=== PATIENT | female | born 1975 | race Caucasian/White ===

== ENCOUNTER → 2020-05-01 | Outpatient (CLI) | payer OTHER ==
--- NOTE | 2020-05-01 16:24 | CONS ---
CONSULTATION DATE OF SERVICE: 05/01/2020 This patient is a 45-year-old lady who has [facility] for obstructive sleep apnea-hypopnea syndrome. HISTORY OF PRESENT ILLNESS/SLEEP-WAKE EVALUATION: Patient was diagnosed with obstructive sleep apnea about 2 years ago. Since that time she has been on treatment with CPAP and, according to her, she is using equipment every night. Her sleep schedule is from midnight until 8 a.m. on working days and from 1 or 2 a.m. until 9 or 10 a.m. on weekends. Usually no problems with falling asleep. No TV in bedroom. Patient usually sleeps on the side position. Usually she is able to sleep through the night without awakenings. In the morning she wakes up tired, has difficulties paying attention, falling asleep during the day. She has problems with concentration, irritability, depression and anxiety. [place] Sleepiness Scale is increased significantly at 17. PAST MEDICAL HISTORY: Past medical history is positive for allergies, depression, acid reflux. PAST SURGICAL HISTORY: Cholecystectomy, partial hysterectomy, carpal tunnel syndrome surgery, bladder suspension. MEDICATIONS: Zyrtec, Prilosec, Pristiq. SOCIAL HISTORY: Positive for smoking a half to one pack a day for 20 years. Alcohol consumption none. FAMILY HISTORY: Hypertension, heart problems, stroke, fibromyalgia, arthritis, cancer, sleep apnea, mental illness, anemia, restless legs. REVIEW OF SYSTEMS: Sleepiness during the day. PHYSICAL EXAMINATION: GENERAL: A pleasant lady without distress. VITAL SIGNS: BP 139/88, HR 88, RR 16, height 5 feet 5 inches, weight 274, body mass index 45.5, oxygen saturation at room air 98%. HEENT: PERRLA, EOMI. Evaluation of oropharynx showed tongue protrudes midline. Low position of soft palate. NECK: Supple. No JVD. Thyroid is not palpable. Wide neck; 17-1/4 inches in circumference. LUNGS: Clear to percussion and to auscultation. Good air exchange. No wheezing or rhonchi. HEART: S1, S2 regular. No murmurs, gallops or rubs. ABDOMEN: Obese. EXTREMITIES: No clubbing or cyanosis. ADMISSIONS MANAGER: Awake, alert, and oriented X3. Cranial nerves 2 to 7 intact. There is no fasciculation or atrophy. noted. No focal deficits observed. IMPRESSION: 1. Obstructive sleep apnea for 2 years. The patient continues to use CPAP equipment but feels sleepy during the day. 2. Depression. 3. Allergies. 4. Acid reflux. 5. Status post cholecystectomy. 6. Status post bladder suspension. 7. Status post partial hysterectomy. 8. Status post surgery for carpal tunnel syndrome. PLAN: 1. Patient will continue to use CPAP equipment every night for the whole night. 2. Will repeat CPAP titration for reevaluation of effective CPAP pressure at the present time. 3. Precautions related to driving. No driving if feeling any sleepiness. 4. Losing weight. Thank you very much for allowing me to participate in the management of your patient. Sincerely, Carroll Nash MD, PhD, FAASM Diplomat of [employer] [facility] [id number] / LAY: [id number] /
== END | disposition home or self-care (01) ==
LOC: SLEEP 13:35
PROVIDERS: ATTEND Internal Medicine
DX: G47.33 Obstructive sleep apnea (adult) (pediatric) (principal); F32.9 Major depressive disorder, single episode, unspecified; K21.9 Gastro-esophageal reflux disease without esophagitis; Z90.49 Acquired absence of other specified parts of digestive tract; Z90.711 Acquired absence of uterus with remaining cervical stump; Z96.89 Presence of other specified functional implants; Z98.890 Other specified postprocedural states; Z99.89 Dependence on other enabling machines and devices; T78.40XA Allergy, unspecified, initial encounter; F17.210 Nicotine dependence, cigarettes, uncomplicated; Z79.899 Other long term (current) drug therapy
CPT/HCPCS: 99211

== ENCOUNTER → 2020-06-16 | Outpatient (CLI) | payer OTHER ==
[~2020-06-16] MED LIST: IRON SUCROSE 300 MG in SODIUM CHLORIDE 0.9% 250 ML IVPB ONE; SODIUM CHLORIDE 0.9% 500 ML 500 ML in EMPTY BAG 1 BAG IV PRN
[2020-06-16 09:20] VITALS: BP 142/91; PULSE 74; RESP 16; TEMP 98
== END | disposition home or self-care (01) ==
LOC: PROCWHC3 08:48
PROVIDERS: ATTEND Internal Medicine Hematology & Oncology
DX: D50.9 Iron deficiency anemia, unspecified (principal)
CPT/HCPCS: 96365; 96366; J1756

== ENCOUNTER → 2020-11-28 | Outpatient (CLI) | payer OTHER ==
--- NOTE | 2020-11-28 16:42 | US ---
EXAMINATION TYPE: US kidneys/renal and bladder DATE OF EXAM: 11/28/2020 COMPARISON: None CLINICAL HISTORY: 45-year-old female R10.9 Flank PaAIN, Z90.5 R35.0. Right flank pain, right hip pain . 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 FINDINGS: EXAM MEASUREMENTS: Right Kidney: 7.6 X 3.7 x 4.2 cm Left Kidney: 12.0 x 5.6 x 5.9 cm Right Kidney: Measuring smaller than left due to prior surgery. No hydronephrosis. No cystic or solid masses visualized Left Kidney: No hydronephrosis. 4 mm echogenic focus visualized at the lower pole. Bladder: Partial distention limits evaluation. Bilateral Jets seen: Left jet visualized IMPRESSION: 1. Smaller right kidney compatible with history of prior surgery. 2. No hydronephrosis on either side. 3. Possible 4 mm nonobstructive left renal calculus.
[2020-11-28 17:20] LABS: Appearance,Urine Cloudy (Clear); Bacteria,Urine Moderate /hpf; Bilirubin,Urine Negative (Negative); Blood,Urine Negative (Negative); Color,Urine Yellow; Glucose,Urine (UA) Negative (Negative); Ketones,Urine Negative (Negative); Leukocyte Esterase,Urine Negative (Negative); Mucus,Urine Moderate /hpf; Nitrite,Urine Positive (Negative); PH, Urine 5.5 (5.0-8.0); Protein,Urine Trace (Negative); RBC,Urine 1 /hpf (0-5); Specific Gravity,Urine 1.023 (1.001-1.035); Squamous Epithelial Cell,Urine 28 /hpf (0-4); Urobilinogen,Urine <2.0 mg/dL (<2.0); WBC,Urine 4 /hpf (0-5)
== END | disposition home or self-care (01) ==
LOC: RADUSWWP 16:05
PROVIDERS: ATTEND Family Medicine
DX: N27.0 Small kidney, unilateral (principal); Z90.5 Acquired absence of kidney; R10.9 Unspecified abdominal pain; R35.0 Frequency of micturition
CPT/HCPCS: 76770; 80048; 81001

== ENCOUNTER 2020-11-30 11:48 | Emergency (ER) | payer OTHER ==
[2020-11-30] MEDS ORDERED: MORPHINE SULFATE 4 MG/ML SYRINGE IV STA (12:11)
[2020-11-30] MEDS ORDERED: ONDANSETRON 4 MG/2 ML VIAL IVP STA (12:11)
[2020-11-30] MEDS ORDERED: KETOROLAC 15 MG/ML 1 ML VIAL IVP STA (12:11)
[2020-11-30] MEDS ORDERED: SODIUM CHLORIDE 0.9% 1,000 ML IV STA (12:11)
[2020-11-30 12:37] LABS: Basophils # (A) 0.2 k/uL (0-0.2); Basophils % (A) 2 %; Eosinophils # (A) 0.4 k/uL (0-0.7); Eosinophils % (A) 3 %; HCT 48.3 % (34.0-46.0); HGB 16.6 gm/dL (11.4-16.0); Lymphocytes % (A) 24 %; MCHC 34.4 g/dL (31.0-37.0); MCV 93.2 fL (80.0-100.0); Mean Platelet Volume 7.6; Monocytes # (A) 0.5 k/uL (0-1.0); Monocytes % (A) 4 %; Neutrophils # (A) 8.5 k/uL (1.3-7.7); Neutrophils % (A) 68 %; Platelet Count 343 k/uL (150-450); RBC 5.18 m/uL (3.80-5.40); RDW 13.2 % (11.5-15.5); WBC 12.6 k/uL (3.8-10.6)
[2020-11-30 12:47] LABS: ALT 23 U/L (4-34); AST 24 U/L (14-36); African American GFR (CKD) >90 (>60 ml/min/1.73 sqM); Albumin 4.2 g/dL (3.5-5.0); Alkaline Phosphatase 61 U/L (38-126); Amylase 68 U/L (30-110); Anion Gap 7 mmol/L; Blood Urea Nitrogen 14 mg/dL (7-17); Calcium 9.2 mg/dL (8.4-10.2); Carbon Dioxide 24 mmol/L (22-30); Chloride 105 mmol/L (98-107); Glucose 96 mg/dL (74-99); Lipase 78 U/L (23-300); Non-African American GFR(CKD) >90 (>60 ml/min/1.73 sqM); Potassium 4.6 mmol/L (3.5-5.1); Sodium 136 mmol/L (137-145); Total Bilirubin 0.7 mg/dL (0.2-1.3); Total Protein 7.3 g/dL (6.3-8.2)
[2020-11-30 12:48] LABS: Appearance,Urine Cloudy (Clear); Bacteria,Urine Occasional /hpf; Bilirubin,Urine Negative (Negative); Blood,Urine Negative (Negative); Color,Urine Yellow; Glucose,Urine (UA) Negative (Negative); Ketones,Urine Negative (Negative); Leukocyte Esterase,Urine Negative (Negative); Mucus,Urine Rare /hpf; Nitrite,Urine Negative (Negative); Protein,Urine Negative (Negative); RBC,Urine 1 /hpf (0-5); Specific Gravity,Urine 1.018 (1.001-1.035); Squamous Epithelial Cell,Urine 4 /hpf (0-4); Urobilinogen,Urine <2.0 mg/dL (<2.0); WBC,Urine 2 /hpf (0-5)
--- NOTE | 2020-11-30 13:23 | CT ---
EXAMINATION TYPE: CT abdomen pelvis wo con DATE OF EXAM: 11/30/2020 COMPARISON: Renal ultrasound 11/28/2020 HISTORY: Right flank pain CT DLP: 1475.9 mGycm Automated exposure control for dose reduction was used. TECHNIQUE: Helical acquisition of images from the lung bases through the pelvis. FINDINGS: Lack of intravenous contrast could compromise sensitivity, posterior diaphragmatic hernias containing fat. LUNG BASES: No significant abnormality is appreciated. AORTA: No significant abnormality is appreciataed. LIVER/GB: Liver shows low attenuation possibly due to hepatic steatosis, gallbladder is surgically ab sent. PANCREAS: No significant abnormality is seen. SPLEEN: No significant abnormality is seen. ADRENALS: No significant abnormality is seen. KIDNEYS: Distortion of the right kidney, there are surgical clips the upper pole, correlate for patie nt's surgical history, there is no hydronephrosis or ureteral calculus. REPRODUCTIVE ORGANS: Left ovary is seen, right ovary is smaller, uterus is absent. URINARY BLADDER: No significant abnormality is seen. BOWEL: No bowel obstruction, appendix is not inflamed. FREE AIR: No Free Air is visible. ASCITES: None visible. PELVIC ADENOPATHY: None visualized. RETROPERITONEAL ADENOPATHY: No Retroperitoneal Adenopathy visible. OSSEOUS STRUCTURES: No significant abnormality is seen. IMPRESSION: POSTOP CHANGES, POSSIBLE HEPATIC STEATOSIS, NONCONTRAST EXAM
--- NOTE | 2020-11-30 13:29 | ED ---
Abdominal Pain HPI - General Chief Complaint: Abdominal Pain Stated Complaint: back pain Time Seen by Provider: 11/30/20 12:05 Source: patient, RN notes reviewed Mode of arrival: ambulatory Limitations: no limitations - History of Present Illness Initial Comments: 45-year-old female presents emergency Department with chief complaint flank pain. Patient states she was started on antibiotics yesterday for possible infection. Patient denies any fevers chills. She did have recent ultrasound secondary to prior kidney surgery when she was 14 and is found to have a small kidney on the right. Patient states that she's had slight nausea no significant vomiting diarrhea constipation or dysuria currently. Patient denies any chest pain shortness of breath states it does hurt with movement. - Related Data Home Medications Medication Instructions Recorded Confirmed Cetirizine HCl [Zyrtec] 10 mg PO DAILY 05/16/20 11/30/20 Desvenlafaxine [Pristiq ER] 100 mg PO DAILY 11/30/20 11/30/20 Omeprazole [PriLOSEC] 20 mg PO DAILY 11/30/20 11/30/20 Sulfamethox-Tmp 800-160Mg [Bactrim 1 tab PO Q12HR 11/30/20 11/30/20 DS 800-160 mg] Previous Rx's Medication Instructions Recorded Cyclobenzaprine [Flexeril] 10 mg PO TID PRN #15 tab 11/30/20 Ibuprofen [Motrin] 600 mg PO Q8HR PRN #20 tab 11/30/20 Allergies Allergy/AdvReac Type Severity Reaction Status Date / Time pineapple Allergy Anaphylaxis Verified 11/30/20 13:25 Review of Systems ROS Statement: Those systems with pertinent positive or pertinent negative responses have been documented in the HPI. ROS Other: All systems not noted in ROS Statement are negative. Past Medical History Past Medical History: Blood Disorder, GERD/Reflux, Sleep Apnea/CPAP/BIPAP Additional Past Medical History / Comment(s): IRON DEFICIENCY ANEMIA. 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 RIGHT KIDNEY SMALLER THAN LEFT. History of Any Multi-Drug Resistant Organisms: C-DIFF Date of last positivie culture/infection: NOVEMBER 2018 MDRO Source:: FROM A PATIENT Past Surgical History: Bladder Surgery, Cholecystectomy, Hysterectomy, Orthopedic Surgery Additional Past Surgical History / Comment(s): BLADDER SUSPENSION 2013. LEFT SHOULDER SURGERY. BILATERAL CARPEL TUNNEL SURGERY. MAHENDRA PROCEDURE RIGHT LEG. EXP LAP FOR ENDOMETRIOSIS. 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 Past Anesthesia/Blood Transfusion Reactions: Postoperative Nausea & Vomiting (PONV) Past Psychological History: Depression Smoking Status: Current every day smoker Past Alcohol Use History: Rare Past Drug Use History: None Reported General Exam Limitations: no limitations General appearance: alert, in no apparent distress Head exam: Present: atraumatic, normocephalic, normal inspection Eye exam: Present: normal appearance, PERRL, EOMI. Absent: scleral icterus, conjunctival injection, periorbital swelling ENT exam: Present: normal exam, normal oropharynx, mucous membranes moist Neck exam: Present: normal inspection, full ROM. Absent: tenderness, meningismus, lymphadenopathy Respiratory exam: Present: normal lung sounds bilaterally. Absent: respiratory distress, wheezes, rales, rhonchi, stridor Cardiovascular Exam: Present: regular rate, normal rhythm, normal heart sounds. Absent: systolic murmur, diastolic murmur, rubs, gallop, clicks GI/Abdominal exam: Present: soft, normal bowel sounds. Absent: distended, tenderness, guarding, rebound, rigid Extremities exam: Present: normal inspection, full ROM, normal capillary refill. Absent: tenderness, pedal edema, joint swelling, calf tenderness Back exam: Present: full ROM, tenderness, CVA tenderness (R), paraspinal tenderness. Absent: CVA tenderness (L) Neurological exam: Present: alert, oriented X3, CN II-XII intact Skin exam: Present: warm, dry, intact, normal color. Absent: rash Course Vital Signs 11/30/20 11:52 Temperature 97.9 F Pulse Rate 76 Respiratory 16 Rate Blood Pressure 142/95 O2 Sat by Pulse 96 Oximetry Medical Decision Making - Medical Decision Making 45-year-old presented for flank pain. CT does not show any severe abnormality. Patient has been antiemetics for concerning signs of infection urinalysis. Patient's urine is cleared up at this point though he may related to resolving pyelonephritis versus muscular strain. Patient discharged in stable condition patient agrees to plan of discharge. Patient has no red flag symptoms. - Lab Data Result diagrams: 11/30/20 12:28 11/30/20 12:28 Lab Results 11/30/20 11/30/20 11/30/20 Range/Units 12:28 12:28 12:28 WBC 12.6 H (3.8-10.6) k/uL RBC 5.18 (3.80-5.40) m/uL Hgb 16.6 H (11.4-16.0) gm/dL Hct 48.3 H (34.0-46.0) % MCV 93.2 (80.0-100.0) fL MCH 32.0 (25.0-35.0) pg MCHC 34.4 (31.0-37.0) g/dL RDW 13.2 (11.5-15.5) % Plt Count 343 (150-450) k/uL MPV 7.6 Neutrophils % 68 % Lymphocytes % 24 % Monocytes % 4 % Eosinophils % 3 % Basophils % 2 % Neutrophils # 8.5 H (1.3-7.7) k/uL Lymphocytes # 3.0 (1.0-4.8) k/uL Monocytes # 0.5 (0-1.0) k/uL Eosinophils # 0.4 (0-0.7) k/uL Basophils # 0.2 (0-0.2) k/uL Sodium 136 L (137-145) mmol/L Potassium 4.6 (3.5-5.1) mmol/L Chloride 105 (98-107) mmol/L Carbon Dioxide 24 (22-30) mmol/L Anion Gap 7 mmol/L BUN 14 (7-17) mg/dL Creatinine 0.74 (0.52-1.04) mg/dL Est GFR (CKD-EPI)AfAm >90 (>60 ml/min/1.73 sqM) Est GFR (CKD-EPI)NonAf >90 (>60 ml/min/1.73 sqM) Glucose 96 (74-99) mg/dL Plasma Lactic Acid Farhan (0.7-2.0) mmol/L Calcium 9.2 (8.4-10.2) mg/dL Total Bilirubin 0.7 (0.2-1.3) mg/dL AST 24 (14-36) U/L ALT 23 (4-34) U/L Alkaline Phosphatase 61 (38-126) U/L Total Protein 7.3 (6.3-8.2) g/dL Albumin 4.2 (3.5-5.0) g/dL Amylase 68 (30-110) U/L Lipase 78 (23-300) U/L Urine Color Yellow Urine Appearance Cloudy H (Clear) Urine pH 6.0 (5.0-8.0) Ur Specific [place] 1.018 (1.001-1.035) Urine Protein Negative (Negative) Urine Glucose (UA) Negative (Negative) Urine Ketones Negative (Negative) Urine Blood Negative (Negative) Urine Nitrite Negative (Negative) Urine Bilirubin Negative (Negative) Urine Urobilinogen <2.0 (<2.0) mg/dL Ur Leukocyte Esterase Negative (Negative) Urine RBC 1 (0-5) /hpf Urine WBC 2 (0-5) /hpf Ur Squamous Epith Cells 4 (0-4) /hpf Urine Bacteria Occasional H (None) /hpf Urine Mucus Rare H (None) /hpf 11/30/20 Range/Units 12:28 WBC (3.8-10.6) k/uL RBC (3.80-5.40) m/uL Hgb (11.4-16.0) gm/dL Hct (34.0-46.0) % MCV (80.0-100.0) fL MCH (25.0-35.0) pg MCHC (31.0-37.0) g/dL RDW (11.5-15.5) % Plt Count (150-450) k/uL MPV Neutrophils % % Lymphocytes % % Monocytes % % Eosinophils % % Basophils % % Neutrophils # (1.3-7.7) k/uL Lymphocytes # (1.0-4.8) k/uL Monocytes # (0-1.0) k/uL Eosinophils # (0-0.7) k/uL Basophils # (0-0.2) k/uL Sodium (137-145) mmol/L Potassium (3.5-5.1) mmol/L Chloride (98-107) mmol/L Carbon Dioxide (22-30) mmol/L Anion Gap mmol/L BUN (7-17) mg/dL Creatinine (0.52-1.04) mg/dL Est GFR (CKD-EPI)AfAm (>60 ml/min/1.73 sqM) Est GFR (CKD-EPI)NonAf (>60 ml/min/1.73 sqM) Glucose (74-99) mg/dL Plasma Lactic Acid Farhan 1.1 (0.7-2.0) mmol/L Calcium (8.4-10.2) mg/dL Total Bilirubin (0.2-1.3) mg/dL AST (14-36) U/L ALT (4-34) U/L Alkaline Phosphatase (38-126) U/L Total Protein (6.3-8.2) g/dL Albumin (3.5-5.0) g/dL Amylase (30-110) U/L Lipase (23-300) U/L Urine Color Urine Appearance (Clear) Urine pH (5.0-8.0) Ur Specific [place] (1.001-1.035) Urine Protein (Negative) Urine Glucose (UA) (Negative) Urine Ketones (Negative) Urine Blood (Negative) Urine Nitrite (Negative) Urine Bilirubin (Negative) Urine Urobilinogen (<2.0) mg/dL Ur Leukocyte Esterase (Negative) Urine RBC (0-5) /hpf Urine WBC (0-5) /hpf Ur Squamous Epith Cells (0-4) /hpf Urine Bacteria (None) /hpf Urine Mucus (None) /hpf Disposition Clinical Impression: Flank pain Disposition: HOME SELF-CARE Condition: Stable Instructions (If sedation given, give patient instructions): Flank Pain (ED) Additional Instructions: Please return to the Emergency Department if symptoms worsen or any other concerns. Prescriptions: Cyclobenzaprine [Flexeril] 10 mg PO TID PRN #15 tab PRN Reason: Muscle Spasm Ibuprofen [Motrin] 600 mg PO Q8HR PRN #20 tab PRN Reason: Pain Is patient prescribed a controlled substance at d/c from ED?: No Referrals: Joe Alas MD [Primary Care Provider] - 1-2 days Time of Disposition: 14:12
[2020-11-30] MEDS ORDERED: cefTRIAXone IN SWFI 1,000 MG/10 ML SYRINGE IVP STA (14:10)
[2020-11-30] MEDS ORDERED: MORPHINE SULFATE 4 MG/ML SYRINGE IVP STA (14:10)
[2020-11-30] MEDS ORDERED: ACET/COD 300 MG/30 MG STARTER PACK 6 TAB BTL PO STA (14:10)
[2020-11-30 14:58] VITALS: BP 137/89; PULSE 72; RESP 18; TEMP 98
== END 2020-11-30 14:57 | disposition home or self-care (01) ==
LOC: EC 11:48
DX: R10.9 Unspecified abdominal pain (principal); R11.0 Nausea; M54.9 Dorsalgia, unspecified; K21.9 Gastro-esophageal reflux disease without esophagitis; G47.30 Sleep apnea, unspecified; F32.9 Major depressive disorder, single episode, unspecified; F17.200 Nicotine dependence, unspecified, uncomplicated; Z79.899 Other long term (current) drug therapy; Z91.018 Allergy to other foods; Z90.49 Acquired absence of other specified parts of digestive tract; Z90.710 Acquired absence of both cervix and uterus; Z99.89 Dependence on other enabling machines and devices
CPT/HCPCS: 36415; 80053; 82150; 83605; 83690; 85025; 81001; 74176; 99284; 96374; 96375 ×3; 96376; 96361; J2270; J2405; J0696; J1885

== ENCOUNTER 2021-08-29 15:01 | Emergency (ER) | payer OTHER ==
[2021-08-29 15:30] VITALS: BP 158/99; PULSE 85; RESP 20; TEMP 98.8
[2021-08-29] MEDS ORDERED: LIDOCAINE 1% INJ 10MG/ML (20 ML MDV) SQ ONE (16:09)
[2021-08-29] MEDS ORDERED: AMOXIC-POT CLAV 875-125MG 1 EACH TAB PO STA (17:25)
--- NOTE | 2021-08-29 17:27 | ED ---
General Adult HPI - General Chief complaint: Skin/Abscess/Foreign Body Stated complaint: Abscess on buttock Time Seen by Provider: 08/29/21 16:09 Source: patient Mode of arrival: ambulatory Limitations: no limitations - History of Present Illness Initial comments: 46-year-old female with a past medical history of anemia presents to the emergency room for a chief complaint of abscess. Patient states she has an abscess to her buttock. Patient states she has a history of hidradenitis. Patient states he abscess just started yesterday. States it did start draining on her way to the emergency room. Patient denies fevers or chills. States it hurts to sit on her buttock.Patient has no other complaints at this time including shortness of breath, chest pain, abdominal pain, nausea or vomiting, headache, or visual changes. - Related Data Home Medications Medication Instructions Recorded Confirmed Cetirizine HCl [Zyrtec] 10 mg PO DAILY 05/16/20 11/30/20 Desvenlafaxine [Pristiq ER] 100 mg PO DAILY 11/30/20 11/30/20 Omeprazole [PriLOSEC] 20 mg PO DAILY 11/30/20 11/30/20 Sulfamethox-Tmp 800-160Mg [Bactrim 1 tab PO Q12HR 11/30/20 11/30/20 DS 800-160 mg] Previous Rx's Medication Instructions Recorded Cyclobenzaprine [Flexeril] 10 mg PO TID PRN #15 tab 11/30/20 Ibuprofen [Motrin] 600 mg PO Q8HR PRN #20 tab 11/30/20 Amoxicillin/Potassium Clav 1 tab PO Q12HR #20 tab 08/29/21 [Augmentin 875-125 Tablet] Allergies Allergy/AdvReac Type Severity Reaction Status Date / Time pineapple Allergy Anaphylaxis Verified 08/29/21 15:30 Review of Systems ROS Statement: Those systems with pertinent positive or pertinent negative responses have been documented in the HPI. ROS Other: All systems not noted in ROS Statement are negative. Past Medical History Past Medical History: Blood Disorder, GERD/Reflux, Sleep Apnea/CPAP/BIPAP Additional Past Medical History / Comment(s): IRON DEFICIENCY ANEMIA. 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 RIGHT KIDNEY SMALLER THAN LEFT. History of Any Multi-Drug Resistant Organisms: C-DIFF Date of last positivie culture/infection: NOVEMBER 2018 MDRO Source:: FROM A PATIENT Past Surgical History: Bladder Surgery, Cholecystectomy, Hysterectomy, Orthopedic Surgery Additional Past Surgical History / Comment(s): BLADDER SUSPENSION 2014. LEFT SHOULDER SURGERY. BILATERAL CARPEL TUNNEL SURGERY. MAHENDRA PROCEDURE RIGHT L EG. EXP LAP FOR ENDOMETRIOSIS. 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 Past Anesthesia/Blood Transfusion Reactions: Postoperative Nausea & Vomiting (PONV) Past Psychological History: Depression Smoking Status: Current every day smoker Past Alcohol Use History: Rare Past Drug Use History: None Reported General Exam Limitations: no limitations General appearance: alert, in no apparent distress Head exam: Present: atraumatic Eye exam: Present: normal appearance, PERRL, EOMI. Absent: scleral icterus, conjunctival injection ENT exam: Present: normal exam, mucous membranes moist Neck exam: Present: normal inspection, full ROM. Absent: tenderness Respiratory exam: Present: normal lung sounds bilaterally. Absent: respiratory distress, wheezes Cardiovascular Exam: Present: regular rate, normal rhythm, normal heart sounds GI/Abdominal exam: Present: soft, normal bowel sounds. Absent: distended, tenderness Rectal exam: Present: other (Small 1 cm abscess noted within the gluteal cleft. Maybe perianal in nature. No evidence of a perirectal abscess.) Course Vital Signs 08/29/21 15:28 Temperature 98.8 F Pulse Rate 85 Respiratory 20 Rate Blood Pressure 158/99 O2 Sat by Pulse 96 Oximetry Procedures - Incision & Drainage Consent Obtained: verbal consent, written consent Indication: Abscess Site: buttock Size (cm): 1 Anesthetic Used: lidocaine 1% Amount (mLs): 1 I&D Cleaning Method: Chloroprep Sterile Field Used?: Yes Scalpel Used: #11 I&D Drainage Obtained: Pus, Blood Patient Tolerated Procedure: well, no complications Medical Decision Making - Medical Decision Making Small abscess noted within gluteal cleft. Possibly perianal. There is no evidence of perirectal or large abscess. Abscess was already draining. I did offer trying antibiotics with warm compresses the patient prefers this be incised. I did attempt incision and drainage. Purulent material was expelled as well as some minimal blood. Patient will be put on Augmentin. Directed her to do frequent sitz baths or warm compresses. Disposition Clinical Impression: Abscess Disposition: HOME SELF-CARE Condition: Good Instructions (If sedation given, give patient instructions): Abscess (ED), Sitz Bath (DC) Additional Instructions: Please take antibiotics as directed. Do warm compresses or sitz baths. Please follow-up with primary care. If symptoms worsen or he develops high fevers return to the emergency room. Prescriptions: Amoxicillin/Potassium Clav [Augmentin 875-125 Tablet] 1 tab PO Q12HR #20 tab Is patient prescribed a controlled substance at d/c from ED?: No Referrals: Joe Alas MD [Primary Care Provider] - 1-2 days Time of Disposition: 17:26
== END 2021-08-29 17:35 | disposition home or self-care (01) ==
LOC: EC 15:01
DX: L02.31 Cutaneous abscess of buttock (principal); F17.200 Nicotine dependence, unspecified, uncomplicated; Z91.018 Allergy to other foods; K21.9 Gastro-esophageal reflux disease without esophagitis; Z79.899 Other long term (current) drug therapy
CPT/HCPCS: 10060; 99282; J2001

== ENCOUNTER 2022-01-13 09:28 | Emergency (ER) | payer OTHER ==
[2022-01-13] MEDS ORDERED: KETOROLAC 15 MG/ML 1 ML VIAL IM STA (10:05)
--- NOTE | 2022-01-13 10:11 | ED ---
General Adult HPI - General Chief complaint: Extremity Injury, Lower Stated complaint: Lt Knee Injury Time Seen by Provider: 01/13/22 10:00 Source: patient, RN notes reviewed, old records reviewed Mode of arrival: ambulatory Limitations: no limitations - History of Present Illness Initial comments: 47-year-old well-appearing female presents with complaints of left knee pain after tripping over her dog last night and again today. States she hyperextended the left knee. She was at work today with increasing pain and they asked her to come to the emergency room for evaluation. She denies any other pain or injuries. She did try THC oil for pain today. She is a pack and a half a day smoker -: days(s) (1) Location: left, lower extremity (knee) Severity scale (1-10): 5 Quality: aching Consistency: intermittent Improves with: immobilization Worsens with: movement Associated Symptoms: denies other symptoms Treatments Prior to Arrival: other (THC cream) - Related Data Home Medications Medication Instructions Recorded Confirmed Cetirizine HCl [Zyrtec] 10 mg PO DAILY 05/16/20 01/13/22 Omeprazole [PriLOSEC] 20 mg PO DAILY 11/30/20 01/13/22 Benzoyl Peroxide [Benzoyl Peroxide 1 applic TOPICAL DAILY PRN 01/13/22 01/13/22 Cleanser] Clindamycin Phosphate [Cleocin T] 1 applic TOPICAL DAILY PRN 01/13/22 01/13/22 Clobetasol Propionate [Temovate 1 applic TOPICAL BID 01/13/22 01/13/22 0.05% Oint] Venlafaxine HCl ER [Effexor Xr] 150 mg PO DAILY 01/13/22 01/13/22 Previous Rx's Medication Instructions Recorded Ibuprofen [Motrin] 800 mg PO Q6HR #30 tab 01/13/22 Allergies Allergy/AdvReac Type Severity Reaction Status Date / Time pineapple Allergy Anaphylaxis Verified 01/13/22 10:31 hydrocodone [From Vicodin] AdvReac Nausea Verified 01/13/22 10:31 Review of Systems ROS Statement: Those systems with pertinent positive or pertinent negative responses have been documented in the HPI. ROS Other: All systems not noted in ROS Statement are negative. Past Medical History Past Medical History: Blood Disorder, GERD/Reflux, Sleep Apnea/CPAP/BIPAP Additional Past Medical History / Comment(s): IRON DEFICIENCY ANEMIA. 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 RIGHT KIDNEY SMALLER THAN LEFT. History of Any Multi-Drug Resistant Organisms: C-DIFF Date of last positivie culture/infection: NOVEMBER 2018 MDRO Source:: FROM A PATIENT Past Surgical History: Bladder Surgery, Cholecystectomy, Hysterectomy, Orthopedic Surgery Additional Past Surgical History / Comment(s): BLADDER SUSPENSION 2013. LEFT SHOULDER SURGERY. BILATERAL CARPEL TUNNEL SURGERY. MAHENDRA PROCEDURE RIGHT LEG. EXP LAP FOR ENDOMETRIOSIS. 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 Past Anesthesia/Blood Transfusion Reactions: Postoperative Nausea & Vomiting (PONV) Past Psychological History: Depression Smoking Status: Current every day smoker Past Alcohol Use History: Rare Past Drug Use History: None Reported General Exam Limitations: no limitations General appearance: alert, in no apparent distress Eye exam: Present: normal appearance. Absent: scleral icterus, conjunctival injection Respiratory exam: Present: normal lung sounds bilaterally. Absent: respiratory distress, accessory muscle use, decreased breath sounds Cardiovascular Exam: Present: regular rate Left Upper Leg exam: Present: normal inspection. Absent: tenderness Knee exam: Present: normal inspection, full ROM, tenderness, pain/laxity with valgus, full knee extension. Absent: swelling, abrasion, ecchymosis, deformity, crepitus, dislocation, erythema, effusion Lower Leg exam: Present: normal inspection. Absent: tenderness Ankle exam: Present: normal inspection. Absent: tenderness Neurovascular tendon exam: Present: no vascular compromise. Absent: abnormal cap refill, extremity cold to touch, pallor, foot drop, significant pain with passive ROM of distal joint Neurological exam: Present: alert, oriented X3 Psychiatric exam: Present: normal affect, normal mood Skin exam: Present: warm, dry, normal color. Absent: cyanosis, diaphoretic Course Vital Signs 01/13/22 01/13/22 09:29 10:17 Temperature 97.8 F 98.1 F Pulse Rate 79 12 L Respiratory 19 72 H Rate Blood Pressure 141/93 138/92 O2 Sat by Pulse 97 97 Oximetry Medical Decision Making - Medical Decision Making Patient presents with left knee pain after hyperextending it yesterday. X-ray of the left knee shows no acute fracture or dislocation. There is no overlying soft tissue swelling. She will be placed in an Aneesh wrap and instructed to follow-up with orthopedics next week. Directed to take Tylenol and Motrin as needed for pain, rest, ice, elevate. Return to the emergency room if any new or concerning symptoms including increased pain or inability to ambulate. Disposition Clinical Impression: Knee pain Disposition: HOME SELF-CARE Condition: Good Instructions (If sedation given, give patient instructions): Knee Pain (ED) Additional Instructions: Wear Aneesh wrap until pain subsides, at least for the next 3-5 days. Follow-up with orthopedics next week. Use Motrin as prescribed for pain. You can also continue using your THC oil for pain. Rest, ice, and elevate at home and return to the emergency room with any new or concerning symptoms. Prescriptions: Ibuprofen [Motrin] 800 mg PO Q6HR #30 tab Is patient prescribed a controlled substance at d/c from ED?: No Referrals: Joe Alas MD [Primary Care Provider] - 1-2 days Virgilio Silva MD [STAFF PHYSICIAN] - 1-2 days Time of Disposition: 10:50
[2022-01-13 10:23] VITALS: BP 138/92; PULSE 12; RESP 72; TEMP 98.1
--- NOTE | 2022-01-13 10:42 | XR ---
EXAMINATION TYPE: XR knee complete LT DATE OF EXAM: 01/13/2022 CLINICAL HISTORY: pain TECHNIQUE: Three views of the left knee are obtained. COMPARISON: None. FINDINGS: There is no acute fracture/dislocation. The tri-compartment joint spaces appear within no rmal limits. The overlying soft tissue appears unremarkable. IMPRESSION: There is no acute fracture or dislocation ICD 10 NO FRACTURE, INITIAL EVALUATION
== END 2022-01-13 11:19 | disposition home or self-care (01) ==
LOC: EC 09:28
DX: M25.562 Pain in left knee (principal); K21.9 Gastro-esophageal reflux disease without esophagitis; Z79.83 Long term (current) use of bisphosphonates; Z91.018 Allergy to other foods; Z88.5 Allergy status to narcotic agent; F17.200 Nicotine dependence, unspecified, uncomplicated; W01.0XXA Fall on same level from slipping, tripping and stumbling without subsequent striking against object, initial encounter
CPT/HCPCS: 73562; 99283; 96372; J1885

== ENCOUNTER → 2022-02-09 | Outpatient (CLI) | payer OTHER ==
--- NOTE | 2022-02-09 16:17 | MR ---
EXAMINATION TYPE: MR knee LT wo con DATE OF EXAM: 02/09/2022 COMPARISON: Plain film 01/13/2022 HISTORY: Left knee pain S/P fall 3 weeks ago. TECHNIQUE: Multiplanar, multisequence imaging of the left knee is performed without IV contrast. FINDINGS: MEDIAL MENISCUS: There is some increased signal within the posterior horn of the medial meniscus with out definitive tear LATERAL MENISCUS: Anterior and posterior horns are intact without tear. CRUCIATE LIGAMENTS: Fibers of the anterior cruciate ligament are somewhat poorly defined proximally, sagittal image #18, coronal image #19 COLLATERAL LIGAMENTS: The medial collateral ligament and lateral collateral ligament complex are inta ct and unremarkable. EXTENSOR MECHANISM: Visualized quadriceps and patellar tendons are intact. EFFUSION: Minimal joint effusion noted POPLITEAL CYST: Minimal marginal semimembranosus gastrocnemius cyst noted TRICOMPARTMENT SPACES: Maintained CARTILAGE: Intact BONE MARROW SIGNAL: There is abnormal signal involving the lateral femoral condyle as well as the pro ximal tibia laterally suggesting bone contusions, difficult to exclude microtrabecular fractures OTHER: No additional significant abnormality is appreciated. IMPRESSION: Tiny suggest anterior cruciate ligament disruption proximally. There are bone contusions with possibl e microtrabecular tears. Small Downs's cyst. Small joint effusion.
== END | disposition home or self-care (01) ==
LOC: RADMRIMAIN 14:40
PROVIDERS: ATTEND Orthopaedic Surgery
DX: M71.22 Synovial cyst of popliteal space [Baker], left knee (principal)

== ENCOUNTER → 2022-05-13 | Outpatient (CLI) | payer OTHER ==
--- NOTE | 2022-05-14 14:25 | MM ---
Reason for Exam: Screening (asymptomatic). Last mammogram was performed 1 year(s) and 1 month(s) ago. Patient History: Menarche at age 11. First Full-Term at age 31. Hysterectomy at age 32. 09/24/2021, US breast needle core LT - 2 on the Left side. Risk Values: Tosha 5 year model risk: 1.6%. NCI Lifetime model risk: 13.9%. Prior Study Comparison: 03/03/2017 Bilateral MG screening mammo w CAD - 2, Unknown. 11/03/2018 Bilateral MG screening mammo w CAD - 2, Unknown. 04/02/2021 Bilateral MG 3D screening mammo w/cad, [facility]. Tissue Density: There are scattered fibroglandular densities. Findings: Analyzed By CAD. A benign calcification is within the right breast. No suspicious groups of microcalcifications, spiculated or lobular masses, architectural distortion or other secondary signs of malignancy are mammographically apparent. Overall Assessment: Benign, BI-RAD 2 Management: Screening Mammogram of both breasts in 1 year. A negative mammogram report should not preclude additional follow up of suspicious palpable abnormalities. Patient should continue monthly self breast exam. A clinical breast exam by your physician is recommended on an annual basis and results should be correlated with mammographic findings. Electronically signed and approved by: Alonso Cruz D.O. Radiologis
== END | disposition home or self-care (01) ==
LOC: RADMAMWWP 13:27
PROVIDERS: ATTEND Family Medicine
DX: Z12.31 Encounter for screening mammogram for malignant neoplasm of breast (principal)
CPT/HCPCS: 77067

== ENCOUNTER → 2023-01-31 | Outpatient (CLI) | payer OTHER ==
[2023-01-31 18:20] LABS: Basophils # (A) 0.08 X 10*3/uL (0.00-0.10); Basophils % (A) 0.6 %; Eosinophils # (A) 0.24 X 10*3/uL (0.04-0.35); Eosinophils % (A) 1.9 %; HCT 44.6 % (37.2-46.3); HGB 14.9 g/dL (12.0-15.0); Immature Grans, Automated 0.6 %; Lymphocytes # (A) 3.37 X 10*3/uL (0.90-5.00); Lymphocytes % (A) 26.9 %; MCH 31.6 pg (27.0-32.0); MCHC 33.4 g/dL (32.0-37.0); MCV 94.7 fL (80.0-97.0); Mean Platelet Volume 10.8 fL (9.5-12.2); Monocytes # (A) 0.76 X 10*3/uL (0.20-1.00); Monocytes % (A) 6.1 %; NRBC Per 100 WBC 0 /100 WBCS (0.0-0.0); Neutrophils # (A) 8.02 X 10*3/uL (1.80-7.70); Neutrophils % (A) 63.9 %; Platelet Count 406 X 10*3/uL (140-440); RBC 4.71 X 10*6/uL (4.10-5.20); RDW 13.2 % (11.5-14.5); WBC 12.55 X 10*3/uL (4.50-10.00)
== END | disposition home or self-care (01) ==
LOC: LABPAT 12:37
PROVIDERS: ATTEND Orthopaedic Surgery
DX: Z01.812 Encounter for preprocedural laboratory examination (principal); D72.829 Elevated white blood cell count, unspecified
CPT/HCPCS: 85025

== ENCOUNTER 2023-02-03 11:39 | Day surgery (SDC) | payer OTHER ==
[2023-01-31 10:28] VITALS: BMI 41.5
--- NOTE | 2023-02-02 23:39 | HP ---
HISTORY AND PHYSICAL DATE OF SURGERY: 02/03/2023. HISTORY OF PRESENT ILLNESS: Migdalia Callejas is a 48-year-old patient seen with progressive right knee pain. We discussed options for treatment. She elected to proceed with right knee arthroscopy. Consent regarding the procedure was obtained. PAST MEDICAL HISTORY: Gastroesophageal reflux disease. Irritable bowel syndrome. PAST SURGICAL HISTORY: Carpal tunnel surgery, hysterectomy, shoulder arthroscopy. DAILY MEDICATIONS: 1. Prilosec. 2. Effexor. 3. Zyrtec. 4. Ibuprofen. ALLERGIES: Vicodin. SOCIAL HISTORY: She smokes cigarettes. PHYSICAL EVALUATION OF THE RIGHT KNEE: Range of motion is 0-130 degrees. Mild effusion. Tenderness in medial joint line, tenderness lateral joint line. Positive medial Stoney's. Positive lateral Stoney's. Ligaments stable. Hip rotation without pain. Distal neurovascular exam is intact. RADIOGRAPHS: Right knee reveal some mild osteoarthritis involving the medial compartment. MRI right knee revealed an intrasubstance medial meniscal tear, partial ACL tear and effusion. IMPRESSION: 1. Internal derangement of right knee with medial meniscal tear. 2. Right knee partial ACL tear. 3. Gastroesophageal reflux disease. PLAN: Right knee arthroscopy with partial medial meniscectomy and debridement of partial ACL tear. MMODL / IJN: [id number] /
[2023-02-03] MEDS ORDERED: HYDROmorphone 0.5 MG/0.5 ML SYRINGE IVP PRN (12:07)
[2023-02-03] MEDS ORDERED: LIDOCAINE 1% (10MG/ML) FOR IV START INTRADERMA PRN (12:07)
[2023-02-03] MEDS ORDERED: ONDANSETRON 4 MG/2 ML VIAL IVP ONE (12:07)
[2023-02-03] MEDS ORDERED: LACTATED RINGERS 1,000 ML IV SCH (12:07)
[2023-02-03] MEDS ORDERED: DEXAMETHASONE SOD PHOSPHATE 4 MG/ML 1 ML VIAL IV ONE (12:07)
[2023-02-03] MEDS ORDERED: SCOPOLAMINE 1 MG/72 HR PATCH TRANSDERM ONE (12:42)
[2023-02-03] MEDS ORDERED: FAMOTIDINE 20 MG/2 ML VIAL IVP ONE (13:12)
[2023-02-03] MEDS ORDERED: MIDAZOLAM 2 MG/2 ML VIAL IVP ONE (13:31)
[2023-02-03] MEDS ORDERED: fentaNYL (PF) 50 MCG/ML 2 ML AMP IVP ONE (13:31)
[2023-02-03] MEDS ORDERED: KETOROLAC 15 MG/ML 1 ML VIAL ONE (14:10)
[2023-02-03] MEDS ORDERED: ALBUTEROL INHALER 60 PUFF/8 GM INHALER (MHU) INHALATION ONE (14:10)
[2023-02-03] MEDS ORDERED: MIDAZOLAM 2 MG/2 ML VIAL ONE (14:10)
[2023-02-03] MEDS ORDERED: LIDOCAINE 2% INJ 20 MG/ML (2 ML VIAL) ONE (14:10)
[2023-02-03] MEDS ORDERED: SUCCINYLCHOLINE CHLORIDE 200 MG/10 ML VIAL IV ONE (14:10)
[2023-02-03] MEDS ORDERED: ROPIVACAINE 5 MG/ML 30 ML VIAL ONE (14:10)
[2023-02-03] MEDS ORDERED: PROPOFOL 10 MG/ML 20 ML VIAL IV ONE (14:10)
[2023-02-03] MEDS ORDERED: fentaNYL (PF) 50 MCG/ML 2 ML AMP ONE (14:10)
[2023-02-03] MEDS ORDERED: HYDROmorphone (PF) 1 MG/ML ONE (14:10)
[2023-02-03] MEDS ORDERED: BUPIVACAIN-EPI 0.25%-1:200,000 30 ML VIAL INTRAARTIC ONE (14:19)
--- NOTE | 2023-02-03 15:04 | P.OP ---
Date of Procedure: 02/03/23 Preoperative Diagnosis: Internal derangement right knee Postoperative Diagnosis: 1. Tear medial meniscus right knee 2. Reactive synovitis medial, lateral and suprapatellar compartments right knee Procedure(s) Performed: 1. Arthroscopic partial medial meniscectomy right knee 2. Arthroscopic partial synovectomy medial, lateral and suprapatellar compartments right knee Anesthesia: RUBY, local Surgeon: Eulalio Mcallister Estimated Blood Loss (ml): 7 Pathology: none sent Condition: stable Disposition: PACU Indications for Procedure: 48-year-old patient seen with progressive right knee pain. After having treatment options discussed, she elected to proceed with arthroscopy. Operative Findings: see description of procedure Description of Procedure: Patient was taken to the operative suite. Patient underwent a general a nesthetic by the department of anesthesia. Patient was given preoperative antibiotics. The right lower extremity was placed in a well-padded arthroscopic leg morales. The right leg was prepped and draped in the normal sterile orthopedic fashion. A lateral parapatellar and suprapatellar incision was made. Trochars were inserted. Arthroscopy was initiated. Suprapatellar pouch revealed diffuse thick reactive synovitis. The patellofemoral joint appeared to articulate congruently. There was grade 1 chondromalacia with osteochondraltears.. The scope was guided into the medial gutter. No loose bodies or plica were identified. The scope was then guided into the medial compartment. A medial parapatellar incision was made. Trocar inserted followed by probe. There was a radial tear posterior horn medial meniscus. There were mild grade 1 chondromalacia changes of the tibial plateau. There was some thick reactive synovitis anteriorly. I performed a partial medial meniscectomy getti ng down to stable meniscal tissue. I performed a partial synovectomy decompressing the reactive synovitis. The residual meniscus was stable. There was good decompression of the synovitis. Scope and probe were then guided into the intercondylar notch. Cruciates were identified, probed and found to be stable. The scope and probe were then guided into lateral compartment. The lateral meniscus was probed and was found to be stable. There was no significant chondromalacia present. There was some thick reactive synovitis anteriorly. I introduced a motorized shaver and performed a partial synovectomy. Shaver was removed. There was good decompression of the synovitis. The scope was in guided back into the suprapatellar compartment. I introduced a motorized shaver into the suprapatellar compartment. I debrided some piecemeal fragments of meniscus that I encountered. I performed a partial synovectomy. Shaver was removed. There was good decompression of the synovitis. I took one more look on the entire knee, no residual debris. Instruments were now removed from the joint. The joint was infiltrated with .25% Marcaine. Steri-Strips were applied to the portal sites. Sterile dressings were applied. The patient was placed into a JULIANNA hose. No tourniquet was utilized. The patient was awakened, transferred to a bed and taken to recovery stable satisfactory condition.
--- NOTE | 2023-02-03 15:11 | P.ANPRN ---
Procedure Note - Anesthesia - Nerve Block Performed Right Adductor Canal Single Time Out Performed: Yes (1330) Date of Procedure: 02/03/23 Procedure Start Time: 13:31 Procedure Stop Time: 13:34 Location of Patient: PreOp Indication: Acute Post-Operative Pain, Requested by Surgeon Specifically requested for management of pain by DrMagen: Eulalio Mcallister Sedation Type: Sedate with meaningful contact maintained Preparation: Sterile Prep Position: Supine Catheter: None Needle Types: Pajunk Needle Gauge: 21 Ultrasound used to visualize needle placement: Yes Ultrasound used to observe medication spread: Yes Injectate: 0.5% Ropivacaine (see comment for volume) (30cc) Blood Aspirated: No Pain Paresthesia on Injection Noted: No Resistance on Injection: Normal Image Stored and Saved: Yes Events: Uneventful and Well Tolerated
[2023-02-03] MEDS ORDERED: ALBUTEROL NEBULIZED 2.5 MG/3 ML INHALATION ONE (15:15)
[2023-02-03 15:30] VITALS: TEMP 97.9
[2023-02-03 16:41] VITALS: RESP 20
[2023-02-03 17:19] VITALS: BP 122/78; PULSE 83
== END 2023-02-03 17:20 | disposition home or self-care (01) ==
LOC: OR 11:39
PROVIDERS: ATTEND Orthopaedic Surgery
DX: M23.91 Unspecified internal derangement of right knee (principal); S83.241A Other tear of medial meniscus, current injury, right knee, initial encounter; M65.9 Synovitis and tenosynovitis, unspecified; G89.18 Other acute postprocedural pain; K21.9 Gastro-esophageal reflux disease without esophagitis; K58.9 Irritable bowel syndrome, unspecified; Z90.710 Acquired absence of both cervix and uterus; Z79.899 Other long term (current) drug therapy; Z98.890 Other specified postprocedural states; Z88.5 Allergy status to narcotic agent; F17.210 Nicotine dependence, cigarettes, uncomplicated
CPT/HCPCS: 64447; 76942; 29881; J2250; J0330; J1100; J0690; J2405; J3010; J1170; J2795; J1885; J2704; J2001

== ENCOUNTER → 2023-03-18 | Outpatient (CLI) | payer OTHER ==
[2023-03-18 15:17] LABS: Basophils # (A) 0.07 X 10*3/uL (0.00-0.10); Basophils % (A) 0.6 %; Eosinophils # (A) 0.26 X 10*3/uL (0.04-0.35); Eosinophils % (A) 2.3 %; HCT 43.6 % (37.2-46.3); HGB 14.2 g/dL (12.0-15.0); Immature Grans, Automated 0.6 %; Lymphocytes # (A) 2.72 X 10*3/uL (0.90-5.00); Lymphocytes % (A) 24.5 %; MCH 31.2 pg (27.0-32.0); MCHC 32.6 g/dL (32.0-37.0); MCV 95.8 fL (80.0-97.0); Mean Platelet Volume 10.4 fL (9.5-12.2); Monocytes # (A) 0.51 X 10*3/uL (0.20-1.00); Monocytes % (A) 4.6 %; NRBC Per 100 WBC 0 /100 WBCS (0.0-0.0); Neutrophils # (A) 7.49 X 10*3/uL (1.80-7.70); Neutrophils % (A) 67.4 %; Platelet Count 365 X 10*3/uL (140-440); RBC 4.55 X 10*6/uL (4.10-5.20); RDW 13.1 % (11.5-14.5); WBC 11.12 X 10*3/uL (4.50-10.00)
[2023-03-18 16:14] LABS: ALT 17 U/L (8-44); AST 16 U/L (13-35); African American GFR (CKD) 124.2 (60.0-200.0); Albumin/Globulin Ratio 1.82 (1.60-3.17); Alkaline Phosphatase 83 U/L (41-126); BUN/Creat Ratio 19.44 Ratio (12.00-20.00); Blood Urea Nitrogen 12.4 mg/dL (9.0-27.0); Carbon Dioxide 27.7 mmol/L (20.0-27.5); Chloride 105 mmol/L (96-109); Chol/HDL Ratio 3.27 Ratio; Globulin 2.2 g/dL (1.6-3.3); Glucose 94 mg/dL (70-110); LDL Cholesterol,Calculated 93.8 mg/dL (0.0-131.0); Non-African American GFR(CKD) 107.1 (60.0-200.0); Potassium 4.3 mmol/L (3.5-5.5); Sodium 142 mmol/L (135-145); Total Protein 6.3 g/dL (6.2-8.2)
[2023-03-19 00:25] LABS: C-Peptide 4.22 ng/mL (0.81-3.85)
== END | disposition home or self-care (01) ==
LOC: LABWHC1 10:15
PROVIDERS: ATTEND Family Medicine
DX: Z00.00 Encounter for general adult medical examination without abnormal findings (principal); I10 Essential (primary) hypertension; I63.9 Cerebral infarction, unspecified
CPT/HCPCS: 36415; 80053; 80061; 81291; 83036; 84443; 84681; 85025; 85613; 85730

== ENCOUNTER → 2023-06-21 | Outpatient (CLI) | payer OTHER ==
--- NOTE | 2023-06-22 23:27 | MM ---
Reason for Exam: Screening (asymptomatic). Last mammogram was performed 1 year(s) and 2 month(s) ago. Patient History: Menarche at age 11. First Full-Term at age 31. Hysterectomy at age 32. 09/24/2021, US breast needle core LT - 2 on the Left side. Risk Values: Tosha 5 year model risk: 1.5%. NCI Lifetime model risk: 13.6%. Prior Study Comparison: 11/03/2018 Bilateral MG screening mammo w CAD - 2, Unknown. 04/02/2021 Bilateral MG 3D screening mammo w/cad, [facility]. 05/13/2022 Bilateral MG screening mammo w CAD, [facility]. Tissue Density: There are scattered fibroglandular densities. Findings: Analyzed By CAD. There is no suspicious group of microcalcifications or new suspicious mass in either breast. Overall Assessment: Negative, BI-RAD 1 Management: Screening Mammogram of both breasts in 1 year. . Patient should continue monthly self-breast exams. A clinical breast exam by your physician is recommended on an annual basis. This exam should not preclude additional follow-up of suspicious palpable abnormalities. Note on Tosha scores and lifetime risk: 1. A Tosha score greater than 3% is considered moderate risk. If this is the case, consider specialist referral to assess eligibility for a risk reducing agent. 2. If overall lifetime risk for the development of breast cancer is 20% or higher, the patient may qualify for future screening with alternating mammogram and breast MRI. Electronically signed and approved by: Beth Sauer M.D. Radiologist
== END | disposition home or self-care (01) ==
LOC: RADMAMWWP 09:00
PROVIDERS: ATTEND Obstetrics & Gynecology
DX: Z12.31 Encounter for screening mammogram for malignant neoplasm of breast (principal)
CPT/HCPCS: 77063; 77067

== ENCOUNTER → 2023-09-19 | Outpatient (CLI) | payer OTHER ==
--- NOTE | 2023-09-20 10:26 | MR ---
EXAMINATION TYPE: MR knee RT wo con DATE OF EXAM: 09/19/2023 COMPARISON: 01/03/2023 HISTORY: prior on synapse, pt had scope done 7 months ago has since fallen twice and aggravated reinj ured knee, most pain below patella and laterally TECHNIQUE: Multiplanar, multisequence imaging of the right knee is performed without IV contrast. FINDINGS: MEDIAL MENISCUS: There is intrasubstance signal seen in the posterior horn of the medial meniscus sim ilar to prior exam suspicious for meniscal tear. LATERAL MENISCUS: Anterior and posterior horns are intact without tear. CRUCIATE LIGAMENTS: There remains a abnormal appearance of the ACL which could represent partial tear . Mucoid degeneration in the differential diagnosis. Intrasubstance signal seen within the posterior cruciate ligament near the femoral attachment is stable may be in the basis of chronic ligamentous st rain COLLATERAL LIGAMENTS: The medial collateral ligament and lateral collateral ligament complex are inta ct and unremarkable. EXTENSOR MECHANISM: Visualized quadriceps and patellar tendons are intact. EFFUSION: No significant suprapatellar joint effusion. POPLITEAL CYST: There is a 1.5 x 1.5 x 2.9 cm popliteal fossa cyst similar to prior exam with surrou nding fluid. Could represent a ruptured popliteal fossa cyst. TRICOMPARTMENT SPACES: Mild narrowing of the medial compartment of the knee joint and patellofemoral joint. BONE MARROW SIGNAL: There is an intraosseous lesion of the distal diaphysis of the femur most likely related to bone infarct most likely related to chondroid lesion. OTHER: Soft tissue varicosities are seen. IMPRESSION: 1. Posterior horn medial meniscal body tear. 2. ACL partial tear favored over myxoid degeneration. 3. Moderate suprapatellar bursal fluid collection. 4. Mild osteoarthritis. 5. Distal diaphyseal femoral intraosseous lesion. Favor bone infarct over chondroid lesion measuring 1.5 cm. 6. Multi septated 1.5 x 1.5 x 2.9 cm popliteal fossa cyst. Small amount of adjacent fluid suggest rup tured cyst.
== END | disposition home or self-care (01) ==
LOC: RADMRIMAIN 08:46
PROVIDERS: ATTEND Orthopaedic Surgery
DX: M17.11 Unilateral primary osteoarthritis, right knee (principal); S83.241A Other tear of medial meniscus, current injury, right knee, initial encounter; M71.21 Synovial cyst of popliteal space [Baker], right knee

== ENCOUNTER → 2023-10-27 | Outpatient (CLI) | payer OTHER ==
[2023-10-27 15:33] LABS: Anion Gap 10.7 mmol/L (4.00-12.00); Carbon Dioxide 28.3 mmol/L (21.6-31.8); Potassium 4.6 mmol/L (3.5-5.5)
[2023-10-27 15:42] LABS: Basophils # (A) 0.08 X 10*3/uL (0.00-0.10); Basophils % (A) 0.7 %; Eosinophils # (A) 0.24 X 10*3/uL (0.04-0.35); HCT 45.6 % (37.2-46.3); HGB 14.8 g/dL (12.0-15.0); Lymphocytes % (A) 26.7 %; MCH 30.1 pg (27.0-32.0); MCHC 32.5 g/dL (32.0-37.0); MCV 92.9 FL (80.0-97.0); Mean Platelet Volume 10.4 FL (9.5-12.2); Monocytes # (A) 0.69 X 10*3/uL (0.20-1.00); Monocytes % (A) 5.8 %; NRBC Per 100 WBC 0 X 10*3/uL (0.00-0.01); Neutrophils # (A) 7.67 X 10*3/uL (1.80-7.70); Platelet Count 380 X 10*3/uL (140-440); RBC 4.91 X 10*6/uL (4.10-5.20); RDW 13.1 % (11.5-14.5); WBC 11.97 X 10*3/uL (4.50-10.00)
== END | disposition home or self-care (01) ==
LOC: LABPAT 12:28
PROVIDERS: ATTEND Orthopaedic Surgery
DX: Z01.812 Encounter for preprocedural laboratory examination (principal); M23.91 Unspecified internal derangement of right knee
CPT/HCPCS: 36415; 80051; 85025

== ENCOUNTER 2023-11-03 13:17 | Day surgery (SDC) | payer OTHER ==
[2023-11-01 09:35] VITALS: BMI 41.5
--- NOTE | 2023-11-03 03:29 | HP ---
HISTORY AND PHYSICAL DATE OF SURGERY: 11/03/2023. HISTORY OF PRESENT ILLNESS: Migdalia Callejas is a 48-year-old patient seen with progressive right knee pain. After having treatment options discussed, she elected to proceed with right knee arthroscopy. Consent was obtained. PAST MEDICAL HISTORY: Hyperlipidemia, gastroesophageal reflux disease, anxiety. PAST SURGICAL HISTORY: Carpal tunnel release, hysterectomy, left shoulder arthroscopy. DAILY MEDICATIONS: 1. Effexor. 2. Prilosec. 3. Zyrtec. 4. Atorvastatin. ALLERGIES: Vicodin. SOCIAL HISTORY: She denies tobacco use. PHYSICAL EVALUATION OF THE RIGHT KNEE: Range of motion is -3/4 to 100 degrees. Mild effusion. Tenderness, medial joint line. Positive medial Stoney's. Tenderness, lateral joint line. Positive lateral Stoney's. Ligaments stable. Hip rotation without pain. Distal neurovascular exam is intact. IMAGING STUDIES: Right knee radiographs revealed mild osteoarthritis. MRI of right knee revealed medial meniscal tear, partial anterior cruciate ligament tear, and intra-articular effusion. IMPRESSION: 1. Internal derangement of right knee with medial meniscal tear and partial anterior cruciate ligament tear. 2. Hyperlipidemia. 3. Gastroesophageal reflux disease. PLAN: Right knee arthroscopy with partial medial meniscectomy and debridement. MMODL / IJN: [id number] /
[~2023-11-03 13:17] MED LIST changes: +DEXAMETHASONE SOD PHOSPHATE 4 MG/ML 1 ML VIAL IV ONE; +HYDROmorphone 0.5 MG/0.5 ML SYRINGE IVP PRN; -IRON SUCROSE 300 MG in SODIUM CHLORIDE 0.9% 250 ML IVPB ONE; +LACTATED RINGERS 1,000 ML IV SCH; +LIDOCAINE 1% (10MG/ML) FOR IV START INTRADERMA PRN; +ONDANSETRON 4 MG/2 ML VIAL IVP ONE; -SODIUM CHLORIDE 0.9% 500 ML 500 ML in EMPTY BAG 1 BAG IV PRN; +droPERidol 5 MG/2 ML VIAL IVP PRN
[2023-11-03] MEDS ORDERED: ONDANSETRON 4 MG/2 ML VIAL IVP ONE (14:06)
[2023-11-03] MEDS ORDERED: DEXAMETHASONE SOD PHOSPHATE 4 MG/ML 1 ML VIAL IVP ONE (14:06)
[2023-11-03] MEDS ORDERED: SCOPOLAMINE 1 MG/72 HR PATCH TRANSDERM ONE (14:10)
[2023-11-03 14:17] VITALS: TEMP 97.9
[2023-11-03] MEDS ORDERED: KETOROLAC 15 MG/ML 1 ML VIAL ONE (14:55)
[2023-11-03] MEDS ORDERED: PROPOFOL 10 MG/ML 20 ML VIAL IV ONE (14:55)
[2023-11-03] MEDS ORDERED: LIDOCAINE 1% INJ 10MG/ML (20 ML MDV) ONE (14:55)
[2023-11-03] MEDS ORDERED: SUCCINYLCHOLINE CHLORIDE 200 MG/10 ML VIAL IV ONE (14:55)
[2023-11-03] MEDS ORDERED: MIDAZOLAM 2 MG/2 ML VIAL ONE (14:55)
[2023-11-03] MEDS ORDERED: fentaNYL (PF) 50 MCG/ML 2 ML AMP ONE (14:55)
[2023-11-03] MEDS ORDERED: LIDOCAINE 4% LTA KIT (4 ML) TOPICAL ONE (14:55)
[2023-11-03] MEDS ORDERED: BUPIVACAINE (PF) 0.25% 30 ML VIAL SQ ONE ×2 (15:14→15:27)
--- NOTE | 2023-11-03 16:05 | P.OP ---
Date of Procedure: 11/03/23 Preoperative Diagnosis: Internal derangement right knee Postoperative Diagnosis: 1. Tear medial and lateral meniscus right knee 2. Reactive synovitis medial, lateral and suprapatellar compartments right knee Procedure(s) Performed: 1. Arthroscopic partial medial and lateral meniscectomy right knee 2. Arthroscopic partial synovectomy medial, lateral and suprapatellar compartments right knee Anesthesia: CHRISA, local Surgeon: Eulalio Mcallister Estimated Blood Loss (ml): 7 Pathology: none sent Condition: stable Disposition: PACU Indications for Procedure: 48-year-old patient seen with progressive right knee pain. After having treatment options discussed, she elected to proceed with arthroscopy. Operative Findings: See description of procedure Description of Procedure: Patient was taken to the operative suite. Patient underwent a general anesthetic by the department of anesthesia. Patient was given preoperative antibiotics. The right lower extremity was placed in a well-padded arthroscopic leg morales. The right leg was prepped and draped in the normal sterile orthopedic fashion. A lateral parapatellar and suprapatellar incision was made. Trochars were inserted. Arthroscopy was initiated. Suprapatellar pouch revealed diffuse thick reactive synovitis. The patellofemoral joint appeared to articulate congruently. There was grade 1 chondromalacia. The scope was guided into the medial gutter. No loose bodies or plica were identified. The scope was then guided into the medial compartment. A medial parapatellar incision was made. Trocar inserted followed by probe. There was a tear involving the posterior horn of the medial meniscus. There were grade 1 chondromalacia changes the medial compartment. There was thick reactive synovitis anteriorly. I performed a partial medial meniscectomy getting down to stable meniscal tissue. I performed a partial synovectomy decompressing the reactive synovitis. The residual meniscus was stable. There was good decompression of the synovitis. Scope and probe were then guided into the intercondylar notch. Cruciates were identified, probed and found to be stable. The scope and probe were then guided into lateral compartment. There was a radial tear posterior horn lateral meniscus. There was no chondromalacia. There was some thick reactive synovitis anteriorly. I performed a partial lateral meniscectomy getting down to stable meniscal tissue. I performed a partial synovectomy. The shaver was removed. The residual meniscus was stable. There was good decompression of the synovitis. The scope was in guided back into the suprapatellar compartment. I introduced a motorized shaver into the suprapatellar compartment. I debrided some piecemeal fragments of meniscus that I encountered. I performed a partial synovectomy. Shaver was now removed. There was good decompression of the synovitis. I took one more look around the entire knee, no residual debris. Instruments were now removed from the joint. The joint was infiltrated with .25% Marcaine. Steri-Strips were applied to the portal sites. Sterile dressings were applied. The patient was placed into a JULIANNA hose. No tourniquet was utilized. The patient was awakened, transferred to a bed and taken to recovery stable satisfactory condition.
[2023-11-03] MEDS ORDERED: traMADol 50 MG TAB ONE (16:30)
[2023-11-03] MEDS ORDERED: traMADol 50 MG TAB PO ONE (16:32)
[2023-11-03 17:06] VITALS: BP 130/87; PULSE 76; RESP 20
== END 2023-11-03 17:34 | disposition home or self-care (01) ==
LOC: OR 13:17
PROVIDERS: ATTEND Orthopaedic Surgery
DX: S83.241A Other tear of medial meniscus, current injury, right knee, initial encounter (principal); S83.281A Other tear of lateral meniscus, current injury, right knee, initial encounter; M23.91 Unspecified internal derangement of right knee; E78.5 Hyperlipidemia, unspecified; F41.9 Anxiety disorder, unspecified; K21.9 Gastro-esophageal reflux disease without esophagitis; Z88.5 Allergy status to narcotic agent; Z79.899 Other long term (current) drug therapy; X58.XXXA Exposure to other specified factors, initial encounter
CPT/HCPCS: 29880; J2250; J0330; J1100; J0690; J2405; J2001; J3010; J1885; J2704; J1170; J0665

== ENCOUNTER → 2025-01-10 | Outpatient (CLI) | payer OTHER ==
--- NOTE | 2025-01-10 11:21 | MM ---
Reason for Exam: Clinical finding. Last mammogram was performed 1 year(s) and 6 month(s) ago. Patient History: Menarche at age 11. First Full-Term at age 31. Hysterectomy at age 32. 09/24/2021, US breast needle core LT - 2 on the Left side. Risk Values: Tosha 5 year model risk: 1.5%. NCI Lifetime model risk: 13.2%. Prior Study Comparison: 04/02/2021 Bilateral MG 3D screening mammo w/cad, [facility]. 05/13/2022 Bilateral MG screening mammo w CAD, [facility]. 06/21/2023 Bilateral MG 3D screening mammo w/cad, [facility]. Tissue Density: There are scattered areas of fibroglandular density. Findings: Analyzed By CAD. No finding to correlate with palpable abnormality. Overall Assessment: Incomplete: need additional imaging evaluation, BI-RAD 0 Management: Diagnostic Breast Ultrasound of the right breast. Results were given to the patient verbally at the time of exam. Patient should continue monthly self-breast exams. A clinical breast exam by your physician is recommended on an annual basis. This exam should not preclude additional follow-up of suspicious palpable abnormalities. Note on Tosha scores and lifetime risk: 1. A Tosha score greater than 3% is considered moderate risk. If this is the case, consider specialist referral to assess eligibility for a risk reducing agent. 2. If overall lifetime risk for the development of breast cancer is 20% or higher, the patient may qualify for future screening with alternating mammogram and breast MRI. [facility], , 01/10/2025 11:18 AM. Electronically signed and approved by: Manjinder Braun DO
== END | disposition home or self-care (01) ==
LOC: RADMAMWWP 10:07
PROVIDERS: ATTEND Family Medicine
DX: N63.10 Unspecified lump in the right breast, unspecified quadrant (principal); R92.323 Mammographic fibroglandular density, bilateral breasts
CPT/HCPCS: 77066; G0279; 77062